=== PATIENT | female | born 1995 | race African-American/Black ===

== ENCOUNTER 2018-11-22 11:48 | Emergency (ER) | payer BC, MEDICAID ==
[~2018-11-22] VITALS: Ht 165.1 cm; Wt 68.5 kg
[2018-11-22 12:08] VITALS: BP 96/55
== END 2018-11-22 13:10 | disposition left against medical advice (07) ==
LOC: ER 11:48
DX: R68.89 Other general symptoms and signs (principal); Z53.21 Procedure and treatment not carried out due to patient leaving prior to being seen by health care provider

== ENCOUNTER 2022-06-03 10:50 | Emergency (ER) | payer BC, MEDICAID ==
[~2022-06-03] VITALS: Ht 167.6 cm; Wt 68.0 kg
[2022-06-03] MEDS ORDERED: TETANUS, DIPHTHERIA, PERTUSSIS VAC/PF 0.5ML (>10YR OLD) IM ONE ×2 (11:15→14:02)
[2022-06-03 13:00] VITALS: BP 106/58
[2022-06-03] MEDS ORDERED: LIDOCAINE HCL/EPINEPHRINE 1%-EPI 1:100,000 50 ML VIAL INFIL ONE (15:45)
== END 2022-06-03 16:21 | disposition home or self-care (01) ==
LOC: ER 11:01
DX: S51.011A Laceration without foreign body of right elbow, initial encounter (principal); M70.31 Other bursitis of elbow, right elbow; F12.10 Cannabis abuse, uncomplicated; W01.0XXA Fall on same level from slipping, tripping and stumbling without subsequent striking against object, initial encounter; Y93.89 Activity, other specified; Y92.018 Other place in single-family (private) house as the place of occurrence of the external cause
CPT/HCPCS: 12001; 36415; 73060; 73080; 73090; 73200; 84702; 90471; 90715; 99285

== ENCOUNTER 2022-06-08 04:45 | Emergency (ER) | payer MEDICAID ==
[~2022-06-08] VITALS: Ht 165.1 cm; Wt 68.0 kg
[2022-06-08 05:07] VITALS: BP 135/113
== END 2022-06-08 06:03 | disposition left against medical advice (07) ==
LOC: ER 04:45
DX: Z53.21 Procedure and treatment not carried out due to patient leaving prior to being seen by health care provider (principal)

== ENCOUNTER 2022-11-18 12:36 | Emergency (ER) | payer MEDICAID ==
[~2022-11-18] VITALS: Ht 165.1 cm; Wt 64.0 kg
[2022-11-18] MEDS ORDERED: SODIUM CHLORIDE 0.9% 1,000 ML IV ONE (13:00)
[2022-11-18 13:22] LABS: BASOPHILS % 0.8 % (0.0-2.0); EOSINOPHILS % 1.9 % (0.0-5.0); HEMATOCRIT. 35.3 % (36.0-48.0); HEMOGLOBIN. 11.9 g/dL (12.0-16.0); LYMPHOCYTES % 45.8 % (20.0-50.0); MEAN CORPUSCULAR HEMOGLOBIN 32.3 pg (28.0-32.0); MEAN CORPUSCULAR VOLUME 96.1 fL (81.0-99.0); MEAN PLATELET VOLUME 9.4 fl (7.4-10.4); NEUTROPHILS % 42.5 % (40.0-76.0); PLATELET 213 x1000/uL (130-400); RED BLOOD CELL COUNT 3.68 mill/uL (4.2-5.4)
[2022-11-18 13:36] LABS: CHLORIDE 108 mEq/L (98-107)
[2022-11-18 14:34] LABS: CLARITY URINE CLEAR (CLEAR); COLOR URINE YELLOW (YELLOW); KETONES URINE NEGATIVE (NEGATIVE); LEUKOCYTE ESTERASE URINE NEGATIVE (NEGATIVE); NITRITE URINE NEGATIVE (NEGATIVE); OCCULT BLOOD URINE NEGATIVE (NEGATIVE); PH URINE 8.5 (4.5-8.0); PROTEIN URINE TRACE (NEGATIVE); SPECIFIC GRAVITY URINE 1.016 (1.005-1.030); UROBILINOGEN URINE 0.2 E.U./dL (0.2-1.0)
[2022-11-18] MEDS ORDERED: POTASSIUM CHLORIDE 20MEQ/PACKET PO NR (14:45)
[2022-11-18 15:00] VITALS: BP 91/52
== END 2022-11-18 15:33 | disposition home or self-care (01) ==
LOC: ER 12:55
DX: R55 Syncope and collapse (principal); F12.10 Cannabis abuse, uncomplicated
CPT/HCPCS: 36415; 80053; 81003; 84484; 85025; 85379; 93005; 96360; 99284; J7030